=== PATIENT | female | born 1995 | race Caucasian/White ===

== ENCOUNTER 2016-08-12 02:27 | Emergency (ER) | payer OTHER ==
[2016-08-12 02:38] VITALS: BP 139/90; PULSE 117; RESP 14; TEMP 97.9; O2SAT 96
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
== END 2016-08-12 04:34 | disposition home or self-care (01) ==
DX: F10.120 Alcohol abuse with intoxication, uncomplicated (principal)
CPT/HCPCS: G0477

== ENCOUNTER 2016-08-13 14:48 | Emergency (ER) | payer OTHER ==
[2016-08-13 14:53] VITALS: BP 118/80; PULSE 77; RESP 14; TEMP 97.7; O2SAT 96
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
== END 2016-08-13 18:32 | disposition home or self-care (01) ==
LOC: EEVIPCON 14:48
DX: T76.21XA Adult sexual abuse, suspected, initial encounter (principal)